=== PATIENT | female | born 1995 | race Caucasian/White ===

== ENCOUNTER → 2022-10-26 | Outpatient (CLI) | payer OTHER ==
[2022-10-26 17:15] LABS: HCT 44.3 % (37.2-46.3); HGB 15.6 d/dL (12.0-15.0); MCH 29.2 pg (27.0-32.0); MCHC 35.2 d/dL (32.0-37.0); Mean Platelet Volume 9.8 FL (9.5-12.2); NRBC Per 100 WBC 0 X 10*3/uL (0.00-0.01); Platelet Count 314 X 10*3/uL (140-440); RBC 5.34 X 10*6/uL (4.10-5.20); WBC 8.19 X 10*3/uL (4.50-10.00)
[2022-10-26 17:16] LABS: Basophils # (A) 0.04 X 10*3/uL (0.00-0.10); Basophils % (A) 0.5 %; Eosinophils # (A) 0.15 X 10*3/uL (0.04-0.35); Eosinophils % (A) 1.8 %; Lymphocytes # (A) 2.96 X 10*3/uL (0.90-5.00); Lymphocytes % (A) 36.1 %; Monocytes # (A) 0.57 X 10*3/uL (0.20-1.00); Neutrophils # (A) 4.44 X 10*3/uL (1.80-7.70); Neutrophils % (A) 54.2 %
[2022-10-26 17:19] LABS: ALT 31 U/L (8-44); AST 21 U/L (13-35); Albumin 4.6 d/dL (3.8-4.9); Albumin/Globulin Ratio 1.53 Ratio (1.60-3.17); Alkaline Phosphatase 59 U/L (41-126); BUN/Creat Ratio 18.12 Ratio (12.00-20.00); Blood Urea Nitrogen 14.5 mg/dL (9.0-27.0); Calcium 9.8 mg/dL (8.7-10.3); Carbon Dioxide 25.9 mmol/L (21.6-31.8); Chloride 101 mmol/L (96-109); Chol/HDL Ratio 6.41 Ratio; Glucose 101 mg/dL (70-110); LDL Cholesterol,Calculated 122.1 mg/dL (0.0-131.0); Potassium 4.5 mmol/L (3.5-5.5); Sodium 139 mmol/L (135-145); T4, Free (Free Thyroxine) 1.14 ng/dL (0.80-1.80); Total Bilirubin 0.4 mg/dL (0.3-1.2); Total Protein 7.6 d/dL (6.2-8.2)
[2022-10-26 18:01] LABS: HIV 2 AB Non-Reactive (Non-Reactive); HIV AB P24 Non-Reactive (Non-Reactive); HIV P24 AG Non-Reactive (Non-Reactive)
== END | disposition home or self-care (01) ==
LOC: LABWHC1 09:09
PROVIDERS: ATTEND Family Medicine
DX: Z11.4 Encounter for screening for human immunodeficiency virus [HIV] (principal); E03.9 Hypothyroidism, unspecified
CPT/HCPCS: 36415; 80053; 80061; 83036; 84439; 84443; 84481; 85025; 87390

== ENCOUNTER → 2024-05-21 | Outpatient (CLI) | payer OTHER ==
--- NOTE | 2024-05-21 10:50 | XR ---
EXAMINATION TYPE: XR knee complete LT DATE OF EXAM: 05/21/2024 COMPARISON: NONE CLINICAL INDICATION: Female, 29 years old with history of M23.95 UNSPECIFIED INTERNAL DERANGEMENT OF LEFT KN; TECHNIQUE: Three views are submitted. FINDINGS: Joint spaces are preserved. Marginal spurring of the patella. Osseous structures are intact. No acut e fracture seen. IMPRESSION: 1. No acute fracture or dislocation. 2. Marginal spurring of the patella. If symptoms are persistent consider follow-up MRI. [facility], , 05/21/2024 10:48 AM
== END | disposition home or self-care (01) ==
LOC: RADXRMAIN 10:29
PROVIDERS: ATTEND Family Medicine
DX: M23.92 Unspecified internal derangement of left knee (principal)